=== PATIENT | female | born 1985 | race Two or more races ===

== ENCOUNTER → 2023-01-07 | Emergency (ER) | payer OTHER ==
[~2023-01-07] VITALS: Ht 167.6 cm; Wt 113.4 kg
== END | disposition home or self-care (01) ==
LOC: ER 10:25
DX: T78.49XA Other allergy, initial encounter (principal)

== ENCOUNTER 2023-01-09 12:15 | Emergency (ER) | payer OTHER ==
[~2023-01-09] VITALS: Ht 167.6 cm; Wt 113.4 kg
== END 2023-01-09 14:43 | disposition home or self-care (01) ==
LOC: ER 12:15
DX: T78.49XA Other allergy, initial encounter (principal)